=== PATIENT | female | born 1955 | race Caucasian/White ===

== ENCOUNTER → 2017-03-08 | Outpatient (CLI) | payer OTHER ==
--- NOTE | 2017-03-11 12:28 | MAMMOGRAPHY REPORT ---
BILATERAL DIGITAL SCREENING MAMMOGRAM TOMOSYNTHESIS WITH CAD: 03/08/2017 CLINICAL HISTORY: Routine screening. Patient has no complaints. TECHNIQUE: Breast tomosynthesis in addition to standard 2D mammography was performed. Current study was also evaluated with a Computer Aided Detection (CAD) system. COMPARISON: Comparison is made to exams dated: 03/02/2016 mammogram, 02/08/2015 mammogram, 04/17/2013 ma mmogram, 01/15/2011 mammogram, 05/16/2006 mammogram, and 02/18/2001 mammogram - [facility] enter. BREAST COMPOSITION: The tissue of both breasts is heterogeneously dense, which may obscure small mas ses. FINDINGS: There is a lobulated partially circumscribed and partially obscured 6 mm mass within the r ight lower inner quadrant anteriorly, for which ultrasound and possible additional spot compression v iews are recommended for further evaluation. This may represent a cyst. The remainder of both breasts are stable compared to prior exams, without suspicious masses, calcific ations, or areas of architectural distortion noted. IMPRESSION: ACR BI-RADS CATEGORY 0: INCOMPLETE EVALUATION: NEED ADDITIONAL IMAGING EVALUATION Right breast mass, for which additional imaging evaluation is recommended. The patient will be [place] d to schedule an appointment. Approximately 10% of breast cancers are not detected with mammography. A negative mammographic report should not delay biopsy if a clinically suggestive mass is present. Mary Raygoza M.D. /:03/09/2017 14:21:13 Flight Manager: Юлия VILLARREAL(Kemi)(Iris), [facility] letter sent: Addl Imaging 0 BI-RADS Code: ACR BI-RADS Category 0: Incomplete Evaluation: Need Additional Imaging Evaluation
== END | disposition home or self-care (01) ==
LOC: C.MAMM 11:00
PROVIDERS: ATTEND Physician Assistant Medical
DX: Z12.31 Encounter for screening mammogram for malignant neoplasm of breast (principal); N63 Unspecified lump in breast

== ENCOUNTER → 2017-03-19 | Outpatient (CLI) | payer OTHER ==
--- NOTE | 2017-03-19 14:36 | MAMMOGRAPHY REPORT ---
ULTRASOUND OF RIGHT BREAST: 03/19/2017 CLINICAL HISTORY: 61-year-old woman called back from screening mammography for a lobulated, partially circumscribed and obscured 6 cm mass in the lower inner anterior right breast. COMPARISON: Comparison is made to exams dated: 03/08/2017 mammogram, 03/02/2016 mammogram, 02/08/2015 jason mogram, 01/27/2014 mammogram, 04/23/2013 ultrasound, and 04/23/2013 mammogram - [facility] nter. FINDINGS: Targeted ultrasound was performed in the lower inner quadrant of the right breast. In the 3:00 periareolar axis, there is a lobulated and circumscribed parallel predominantly anechoic cystic appearing mass measuring 5.3 x 2.2 x 7.1 mm. There are numerous thin internal nonvascular septation s in a lacelike reticular pattern. No internal vascularity is demonstrated. This most likely repres ents a complicated cyst but a mixed solid and cystic mass cannot be completely excluded and a short i nterval follow-up is recommend to ensure stability in 6 months. Incidental note is made of mild shashank gn duct ectasia in the 6:00 periareolar and subareolar right breast. 2 benign anechoic simple cysts are seen in the 3:00 right breast, 1 cm from the nipple, measuring 5.1 x 2.5 mm in conglomerate. IMPRESSION: ACR-BI-RADS CATEGORY 3: PROBABLY BENIGN - FOLLOW-UP RECOMMENDED The partially circumscribed and obscured 6mm mass in the lower inner anterior right breast correlates with a probable complicated cyst with numerous thin internal nonvascular septations on ultrasound. However, a six-month short interval follow-up right diagnostic mammogram and repeat targeted ultrasou nd is recommended to ensure stability and exclude the possibility of a mixed solid and cystic mass. These results and recommendations were discussed with the patient at the time of the exam. She tenta tively scheduled a follow-up appointment prior to leaving our department. Janet Hunt M.D. ay/:03/19/2017 10:32:41 Sander Hand: Юлия VILLARREAL (R)(Iris), [facility] letter sent: Follow Up Recommended 3 BI-RADS Code: ACR-BI-RADS Category 3: Probably Benign
== END | disposition home or self-care (01) ==
LOC: C.MAMM 09:23
PROVIDERS: ATTEND Physician Assistant Medical
DX: N63 Unspecified lump in breast (principal)

== ENCOUNTER → 2017-10-08 | Outpatient (CLI) | payer OTHER ==
--- NOTE | 2017-10-08 15:15 | MAMMOGRAPHY REPORT ---
UNILATERAL RIGHT DIGITAL DIAGNOSTIC MAMMOGRAM TOMOSYNTHESIS WITH CAD AND TARGETED RIGHT ULTRASOUND: CLINICAL HISTORY: 62-year-old woman presents for follow-up in the right breast. A subcentimeter lobu lated mass was identified in the lower inner quadrant of the anterior right breast on recent screenin g mammography and was thought to correspond to a complicated cyst with thin internal nonvascular sept ations in the 3:00 periareolar right breast. She presents to reassess this probable complicated cyst . TECHNIQUE: Right breast tomosynthesis in addition to standard 2D mammography was performed. Current s carina was also evaluated with a Computer Aided Detection (CAD) system. COMPARISON: Comparison is made to exams dated: 03/19/2017 ultrasound, 03/08/2017 mammogram, 03/02/2016 m ammogram, 02/08/2015 mammogram, 01/27/2014 mammogram, and 01/27/2014 ultrasound - [facility] enter. BREAST COMPOSITION: The tissue of the right breast is heterogeneously dense, which may obscure small masses. FINDINGS: There is persistence of a gently lobulated and circumscribed 6.1 x 4.8 x 4.2 mm mass in the lower inner anterior right breast. No associated calcification or architectural distortion. No oth er new suspicious masses, calcifications, areas of architectural distortion or asymmetry identified i n the right breast. There are scattered stable benign rim and round microcalcifications. Targeted ultrasound was performed in the 3:00 periareolar and retroareolar right breast. In the 3:00 periareolar right breast, a gently lobulated predominantly anechoic cystic mass is again identified, with multiple thin internal nonvascular septations. This probable complicated cyst measures 6.5 x 3 .5 x 5.6 mm on ultrasound, and has not significantly changed since the prior exam given slight differ ences in measuring technique. Previous ultrasound measurements were 5.3 x 2.2 x 7.1 mm. Note is mad e of benign duct ectasia in the retroareolar right breast. IMPRESSION: ACR-BI-RADS CATEGORY 3: PROBABLY BENIGN, TARGETED ULTRASOUND ACR-BI-RADS CATEGORY 3: PRO BABLY BENIGN There is a probable complicated cyst with thin internal nonvascular septations in the periareolar rig ht breast measuring 6.5 mm, thought to correlate with the gently lobulated, benign-appearing mammogra phic mass. Another short interval follow-up right diagnostic tomosynthesis mammogram and targeted ul trasound is recommended in 6 months to ensure longer stability. Annual left mammography will also be due at that time. These results and recommendations were discussed with the patient at the time of the exam. Approximately 10% of breast cancers are not detected with mammography. A negative mammographic report should not delay biopsy if a clinically suggestive mass is present. Janet Hunt M.D. ay/:10/08/2017 11:57:17 Desk Editor: Reanna Keenan RT(R)(M), [facility] letter sent: Follow Up Recommended 3 BI-RADS Code: ACR-BI-RADS Category 3: Probably Benign Ultrasound BI-RADS: ACR-BI-RADS Category 3: Pr obably Benign
== END | disposition home or self-care (01) ==
LOC: C.MAMM 10:47
PROVIDERS: ATTEND Physician Assistant Medical
DX: N63.14 Unspecified lump in the right breast, lower inner quadrant (principal)

== ENCOUNTER → 2018-03-20 | Outpatient (CLI) | payer OTHER ==
[2018-03-20 17:32] LABS: ALBUMIN 3.8 gm/dl (3.4-5.0); ALKALINE PHOSPHATASE 80 U/L (45-117); ALT/SGPT 22 U/L (12-78); AST/SGOT 15 U/L (15-37); BLOOD UREA NITROGEN 16 mg/dl (7-18); CALCIUM 9.5 mg/dl (8.5-10.1); CARBON DIOXIDE 27 mmol/L (21-32); CHOLESTEROL 248 mg/dl (0-200); CREATININE 0.79 mg/dl (0.60-1.20); GLUCOSE 87 mg/dl (70-99); LDL CHOLESTEROL CALCULATED 162 mg/dl; POTASSIUM 4.3 mmol/L (3.5-5.1); SODIUM 140 mmol/L (136-145); TOTAL PROTEIN 7.6 gm/dl (6.4-8.2)
== END | disposition home or self-care (01) ==
LOC: C.LABBC 13:54
PROVIDERS: ATTEND Physician Assistant Medical
DX: Z00.00 Encounter for general adult medical examination without abnormal findings (principal); E78.5 Hyperlipidemia, unspecified